=== PATIENT | female | born 1965 | race Caucasian/White ===

== ENCOUNTER 2024-02-08 12:00 | Day surgery (SDC) | payer BC ==
[~2024-02-08 12:00] MED LIST: LACTATED RINGERS 1,000 ML BAG ONE
[2024-02-08] MEDS ORDERED: PROPOFOL 10 MG/ML 20 ML VIAL IV ONE (12:07)
--- NOTE | 2024-03-02 17:06 | P.PCN ---
Date of Procedure: 02/09/24 Procedure(s) Performed: This is an addendum to the procedure was performed on 02/09/2024. Procedure performed colonoscopy Procedure: Scope was advanced into the cecum. Careful examination was performed. Colon appeared normal. Scattered sigmoid diverticulosis seen.
== END 2024-02-08 13:08 | disposition home or self-care (01) ==
LOC: ORWHC2ENDO 12:00
PROVIDERS: ATTEND Internal Medicine Gastroenterology
DX: Z12.11 Encounter for screening for malignant neoplasm of colon (principal); K57.30 Diverticulosis of large intestine without perforation or abscess without bleeding; Z98.890 Other specified postprocedural states
CPT/HCPCS: 45378